=== PATIENT | female | born 1975 | race Caucasian/White ===

== ENCOUNTER 2021-01-04 09:48 | Emergency (ER) | payer OTHER, SELFPAY ==
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
[2021-01-04 10:15] VITALS: BP 120/77; PULSE 79; RESP 16; TEMP 36.3; O2SAT 100; BMI 25.1
== END 2021-01-04 11:23 | disposition home or self-care (01) ==
PROVIDERS: Emergency Provider Emergency Medicine
DX: S02.5XXA Fracture of tooth (traumatic), initial encounter for closed fracture (principal); X58.XXXA Exposure to other specified factors, initial encounter; Y93.9 Activity, unspecified; Y92.9 Unspecified place or not applicable; Y99.9 Unspecified external cause status
CPT/HCPCS: 99283

== ENCOUNTER 2023-10-26 11:23 | Emergency (ER) | payer SELFPAY ==
--- NOTE | ~2023-10-26 | XR_ITS ---
EXAMINATION: XR CHEST CLINICAL INFORMATION: Chest pain radiates to back since last night COMPARISON: None available. TECHNIQUE: 2 views of the chest were obtained. FINDINGS: Lungs are well-inflated and clear. Trachea is midline in position. No interstitial disease, consolidation or mass. No pleural effusion or pneumothorax. Cardiac silhouette and pulmonary vessels are normal in size. The mediastinum and jennifer have normal contour. Minimal spondylosis of the thoracic spine. Thoracic vertebra have normal height and alignment. XR/XR chest 2V IMPRESSION: Lungs have a normal appearance. No acute cardiopulmonary abnormality.
--- NOTE | 2023-10-26 11:26 | ECG_ITS ---
Test Reason : CP Blood Pressure : / mmHG Vent. Rate : 070 BPM Atrial Rate : 070 BPM P-R Int : 132 ms QRS Dur : 074 ms QT Int : 388 ms P-R-T Axes : 016 043 036 degrees QTc Int : 419 ms Normal sinus rhythm with sinus arrhythmia Normal ECG No previous ECGs available Referred By: Generic ED Physician Electronically Signed By:RITO BARTLETT
[2023-10-26 11:55] VITALS: BP 142/68; PULSE 69; RESP 16; TEMP 37; O2SAT 99; BMI 26.5
--- NOTE | 2023-10-26 11:55 | ED_ITS ---
HPI - Chest Pain General Chief Complaint: Chest Pain Stated Complaint: Chest Pain Since Last Night Time Seen by Provider: 10/26/23 16:09 Source: patient Mode of arrival: ambulatory Limitations: no limitations History of Present Illness ED Provider: Vibha Daniel PA-C HPI narrative: 47 yo female with no known medical problems presents to ER for evaluation of 10/16 constant, central chest pain that radiates to her back with breathing. No recent illness and no other symptoms. Started last night when she was at work. She works as a IMPLEMENTATION TECHNICIAN. No heavy lifting. No shortness of breath, nausea, diaphoresis. She states when she takes a deep breath she gets a sharp pain in her central chest that radiates to her back. She has no history of high blood pressure. MD complaint: chest pain Onset (ago): hour(s) Timing of current episode: constant Prior episodes: No Onset: during rest Pain location: substernal Pain radiation: back Severity: moderate Quality: sharp Relieving factors: nothing Exacerbating factors: inspiration and palpation Treatment prior to arrival: none Risk Factors Coronary artery disease risk factors: none Thoracic aortic dissection risk factors: none Related Data On Oral Contraceptives: No Previous Rx's ?Medication ?Instructions ?Recorded chlorhexidine gluconate 0.12 % 15 ml buccal BID #118 mL 01/04/21 mouthwash ibuprofen 600 mg tablet 600 mg PO Q8H PRN pain #20 tabs 01/04/21 penicillin V potassium 500 mg 500 mg PO TID 7 days #21 tabs 01/04/21 tablet tramadol 50 mg tablet 50 mg PO Q8H PRN pain #10 tabs 01/04/21 Allergies Allergy/AdvReac Type Severity Reaction Status Date / Time No Known Allergies Allergy Verified 10/26/23 11:58 [No Known Allergies*] Review of Systems 2 Review of Systems: Yes all other systems are reviewed and are negative PMFSH Past Medical History Medical History No known health problems Social History Social History Advance Directives: No Advance Directives Information Provided: No Physical Exam 2 Vital Signs: Vital Signs: Last Vital Signs Temp 97.8 F 10/26/23 18:03 Pulse 69 10/26/23 18:03 Resp 16 10/26/23 18:03 BP 129/75 10/26/23 18:03 Pulse Ox 98 10/26/23 18:03 O2 Del Method Room Air 10/26/23 18:03 BMI result Body Mass Index 26.5 Appearance: Alert. Oriented X3. No acute distress. HEENT: normal external inspection Neck: Normal inspection. CVS: Normal heart rate and rhythm. Pulses normal. Mild central chest wall tenderness over the sternum. Respiratory: No respiratory distress. Breath sounds normal. Abdomen: Soft and nontender. +BS x4 Skin: Skin warm and dry. Normal skin color. Normal skin turgor. No rashes. Extremities: No lower extremity edema. No joint swelling. Neuro/psych: Oriented X 3. Grossly normal, nonfocal. Normal speech and cognition. Medical Decision Making Medical Decision Making [facility] Narrative: 47 yo female with no medical problems presents to the ER for evaluation of chest pain that started last night, worse with inspiration and palpation. No URI symptoms. No hx HTN. She appears well on examination. VS are stable. EKG showed no ischemic changes. Lab workup was reassuring with no anemia, negative troponin. Chest x-ray was clear. Repeat vital signs were improved. Pain was improving on its own. D-dimer was added which was less than 150. Reassuring against PE. Patient would like to go home. Comfortable discharge home with outpatient follow-up PRN. Differential Diagnosis Differential Diagnoses: The differential diagnosis associated with the presentation includes pleurisy, costocondritis, URI, ACS, PE, myocarditis, pericarditis, MSK pain, doubt dissection Admission/Observation Consideration of admission/observation: Escalation of care including admission/observation considered Lab Data [facility] Lab Attestation statement: I reviewed the patient's lab results. No anemia, no leukocytosis, negative troponin 10/26/23 12:55 10/26/23 12:55 Labs: Lab Results 10/26/23 Range/Units 12:55 WBC 5.7 (4.8-10.8) X10*3/uL RBC 4.41 (4.20-5.50) X10*6/uL Hgb 14.4 (12.0-16.0) g/dl Hct 43.0 (37.0-47.0) % MCV 97.5 (80.0-98.0) fL MCH 32.7 (27.0-33.0) pg MCHC 33.5 (31.0-35.0) g/dl RDW 13.7 (11.0-16.0) % Plt Count 243 (160-400) X10*3/uL MPV 9.8 (9.4-12.3) fL Immature Gran % (Auto) 0.0 (0.0-0.4) % Neut % (Auto) 63.1 (45-73) % Lymph % (Auto) 28.1 (20-40) % [place] % (Auto) 8.2 (2-11) % Eos % (Auto) 0.3 (0-4) % Baso % (Auto) 0.3 (0-2) % Lymph # (Auto) 1.6 (1.2-4.9) X10*3/uL [place] # (Auto) 0.5 (0.1-1.2) X10*3/uL Eos # (Auto) 0.0 (0.0-0.4) X10*3/uL Baso # (Auto) 0.0 (0.0-0.2) X10*3/uL Abs Immat Gran (auto) 0.00 (0.00-0.03) X10*3/uL Absolute Neuts (auto) 3.6 (2.0-8.3) x10*3/uL Absolute Nucleated RBC 0.000 (0.0-0.012) X10*3/uL Nucleated RBC % (auto) 0.0 (0.0-0.2) /100WBC PT 11.4 (11.1-13.3) SEC INR 0.9 (0.9-1.1) APTT 37.6 H (26.0-36.8) SEC D-Dimer High Sensitivty < 150 NG/ML Sodium 140 (135-145) mmol/L Potassium 4.3 (3.3-5.1) mmol/L Chloride 105 (96-108) mmol/L Carbon Dioxide 28 (22-29) mmol/L Anion Gap 11 L (12-20) BUN 15 (9-16) mg/dL Creatinine 0.70 (0.5-1.4) mg/dL Estim Creat Clear Calc 84.0 Estimated GFR > 60 Random Glucose 95 (60-115) mg/dL Calcium 9.9 (8.4-10.2) mg/dL Magnesium 2.1 (1.6-2.6) mg/dL Total Bilirubin 0.6 (0.0-1.0) mg/dL Direct Bilirubin 0.2 (0.0-0.5) mg/dL AST 19 (5-31) U/L ALT 12 (0-31) U/L Alkaline Phosphatase 100 (39-117) U/L Troponin I High Sens < 2.7 (<3.5-17.0) ng/L Total Protein 8.2 H (6.5-8.0) g/dL Albumin 4.4 (3.5-5.0) g/dL COVID-19 (ALONZO) Negative (Negative) COVID-19 Clin Com See Note Independent Interpretation I performed an independent interpretation of an: EKG and Plain X-Ray Interpretation: EKG with normal sinus rhythm, sinus arrhythmia, ventricular rate 70 beats per minute, normal QTC, normal ID interval, no ST segment elevations or depressions. Chest x-ray clear with no focal infiltrate Radiology Impression Discussion of test interpretation with radiology: I have reviewed the radiologist's reading. Radiologist Impression: EXAMINATION: XR CHEST CLINICAL INFORMATION: Chest pain radiates to back since last night COMPARISON: None available. TECHNIQUE: 2 views of the chest were obtained. FINDINGS: Lungs are well-inflated and clear. Trachea is midline in position. No interstitial disease, consolidation or mass. No pleural effusion or pneumothorax. Cardiac silhouette and pulmonary vessels are normal in size. The mediastinum and jennifer have normal contour. Minimal spondylosis of the thoracic spine. Thoracic vertebra have normal height and alignment. XR/XR chest 2V IMPRESSION: Lungs have a normal appearance. No acute cardiopulmonary abnormality. External Record Review External record reviewed: Outpatient record Tests considered The following testing was considered but not selected: CTA considered, low clinical suspicion for dissection or PE Prescription Management I considered prescription management with: Pain Medication Critical Care Time Critical Care Time Critical Care Time: No Discharge Plan Discharge Clinical Impression: Atypical chest pain Patient Disposition: Home, Self-Care Instructions: Noncardiac Chest Pain (ED) Additional Instructions: Your lab workup, chest x-ray, EKG were all unremarkable. Recommend taking over the counter motrin and tylenol as needed for pain Follow up with your doctor. If you develop new or worsening symptoms call 911 or come back to the ER for further evaluation. Prescriptions: No Action ibuprofen 600 mg tablet 600 mg PO Q8H PRN (Reason: pain) Qty: 20 0RF penicillin V potassium 500 mg tablet 500 mg PO TID 7 Days Qty: 21 0RF tramadol 50 mg tablet 50 mg PO Q8H PRN (Reason: pain) Qty: 10 0RF chlorhexidine gluconate 0.12 % mouthwash 15 ml buccal BID Qty: 118 0RF Referrals: [facility] [Provider Group] Center,[facility] [Primary Care Provider] - Interventions: ED Discharge Assessment Last Done: 10/26/23 18:03 Discharge Date/Time: 10/26/23 18:05 Print Language: Citizen Of [place]
[2023-10-26 13:01] LABS: MANUAL DIFF FLAG NO
[2023-10-26 13:09] LABS: Basophils Percent Auto 0.3 % (0-2); Eosinophils Percent Auto 0.3 % (0-4); Hemoglobin 14.4 g/dl (12.0-16.0); INTERNATIONAL NORM RATIO 0.9 (0.9-1.1); Lymphocytes Absolute Auto 1.6 X10*3/uL (1.2-4.9); Lymphocytes Percent Auto 28.1 % (20-40); Mean Corpuscular HGB Conc 33.5 g/dl (31.0-35.0); Mean Corpuscular Hemoglobin 32.7 pg (27.0-33.0); Mean Corpuscular Volume 97.5 fL (80.0-98.0); Mean Platelet Volume 9.8 fL (9.4-12.3); Monocytes Absolute Auto 0.5 X10*3/uL (0.1-1.2); Monocytes Percent Auto 8.2 % (2-11); Neutrophils Absolute Auto 3.6 x10*3/uL (2.0-8.3); Neutrophils Percent Auto 63.1 % (45-73); Platelet Count 243 X10*3/uL (160-400); Prothrombin Time 11.4 SEC (11.1-13.3); Red Blood Count 4.41 X10*6/uL (4.20-5.50); Red Cell Distribution Width 13.7 % (11.0-16.0); White Blood Count 5.7 X10*3/uL (4.8-10.8)
[2023-10-26 13:11] LABS: Partial Thromboplastin Time 37.6 SEC (26.0-36.8)
[2023-10-26 13:21] LABS: Alanine Aminotransferase 12 U/L (0-31); Albumin Level 4.4 g/dL (3.5-5.0); Alkaline Phosphatase 100 U/L (39-117); Anion Gap 11 (12-20); Aspartate Amino Transferase 19 U/L (5-31); Bilirubin Direct 0.2 mg/dL (0.0-0.5); Bilirubin Total 0.6 mg/dL (0.0-1.0); Blood Urea Nitrogen 15 mg/dL (9-16); Calcium 9.9 mg/dL (8.4-10.2); Carbon Dioxide 28 mmol/L (22-29); Chloride 105 mmol/L (96-108); Estimated Glomerular Filt Rate > 60; Glucose Random 95 mg/dL (60-115); Magnesium 2.1 mg/dL (1.6-2.6); Potassium 4.3 mmol/L (3.3-5.1); Sodium 140 mmol/L (135-145); Total Protein 8.2 g/dL (6.5-8.0)
[2023-10-26 13:28] LABS: Troponin-I High Sensitivity < 2.7 ng/L (<3.5-17.0)
[2023-10-26 13:43] LABS: COVID-19 Test Negative (Negative); IDNOW Serial# 152EDE1D
[2023-10-26 16:07] VITALS: BP 135/85; PULSE 74; RESP 18; O2SAT 97
--- NOTE | 2023-10-26 16:08 | PC.NURSE ---
back in triage. sx continue (CP with inspiration)
[2023-10-26 17:15] LABS: D Dimer High Sensitivity < 150 NG/ML
[2023-10-26 18:03] VITALS: BP 129/75; PULSE 69; RESP 16; TEMP 36.6; O2SAT 98
== END 2023-10-26 18:05 | disposition home or self-care (01) ==
LOC: HO.ED 18:02
PROVIDERS: Physician Assistant; Emergency Provider Internal Medicine
DX: R07.89 Other chest pain (principal); Z11.52 Encounter for screening for COVID-19
CPT/HCPCS: 71046; 80048; 80076; 83735; 84484; 85025; 85379; 85610; 85730; 87635; 93005; 99283